=== PATIENT | male | born 1930 ===

== ENCOUNTER 2018-04-28 10:13 | Emergency (ER) | payer OTHER ==
[~2018-04-28] VITALS: Ht 170.2 cm; Wt 70.8 kg
[~2018-04-28 10:13] MED LIST: COZAAR25 MG; HYZAAR 100-121 UDTAB; HYZAAR 50/12.51 TAB; TENORMIN25 MG
[2018-04-28] MEDS ORDERED: LOSARTAN POTASS25 MG (11:00)
[2018-04-28] MEDS ORDERED: METFORMIN HCL500 MG (11:01)
== END 2018-04-28 22:19 | disposition home or self-care (01) ==
LOC: ER 10:13
DX: S80.01XA Contusion of right knee, initial encounter (principal); M79.604 Pain in right leg; R41.0 Disorientation, unspecified; W18.39XA Other fall on same level, initial encounter; Y93.89 Activity, other specified; Y92.89 Other specified places as the place of occurrence of the external cause; Y99.8 Other external cause status